=== PATIENT | male | born 1960 | race Caucasian/White ===

== ENCOUNTER 2018-12-04 20:31 | Emergency (ER) | payer SELFPAY ==
[~2018-12-04] VITALS: Ht 172.7 cm; Wt 81.6 kg
[2018-12-04 21:25] VITALS: Ht 172.7 cm; Wt 81.6 kg
[2018-12-04 22:02] LABS: BASOPHIL % 0.9 % (0-2); PLATELET COUNT 270 x10^3mcL (130-400); RED CELL DISTRIBUTION WIDTH 13.7 % (11.5-14.5)
[2018-12-04 22:23] LABS: CARBON DIOXIDE 25.6 mmol/L (21-32); CHLORIDE SERUM 101 mmol/L (98-107); CREATININE SERUM 0.6 mg/dL (0.7-1.3); GFR1 > 60 mL/min; GLUCOSE SERUM 93 mg/dL (74-106); POTASSIUM SERUM 4.6 mmol/L (3.5-5.1); SODIUM SERUM 143 mmol/L (136-145)
[2018-12-04 22:28] LABS: ALBUMIN 4.6 g/dL (3.4-5.0); ALKALINE PHOSPHATASE 101 U/L (46-116); ALT/SGPT 67 U/L (16-63); AST/SGOT 63 U/L (15-37); BILIRUBIN TOTAL 0.37 mg/dL (0.20-1.00)
[2018-12-04 23:46] VITALS: BP 139/81
== END 2018-12-05 00:15 | disposition other institution (70) ==
LOC: ED 20:31
PROVIDERS: Emergency Medicine
DX: Z02.89 Encounter for other administrative examinations (principal)
CPT/HCPCS: G0480; J7030

== ENCOUNTER 2018-12-04 20:31 | Emergency (ER) | payer OTHER | END 2018-12-05 00:15 | disposition other institution (70) | LOC: ED 20:31 | DX: Z02.89 Encounter for other administrative examinations (principal) ==